=== PATIENT | female | born 1960 | race Caucasian/White ===

== ENCOUNTER 2017-06-16 11:43 | Emergency (ER) | payer OTHER ==
[~2017-06-16] VITALS: Ht 170.2 cm; Wt 56.7 kg
--- NOTE | ~2017-06-16 | EKG ---
[address] [place] [place] [address] ELECTROCARDIOGRAM REPORT Name: MIKHAIL ZARAGOZA Room #: DEP Piedad#: [id number] Admission: 06/16/17 Attend Phys: Discharge: 06/16/17 Date of : 58 Report #: [id number] THIS REPORT FOR: //name// [facility] ED Test Date: 2017-06-16 Test Time: 12:55:50 Pat Name: MIKHAIL ZARAGOZA Department: Room: Gender: F Gun Examiner: [facility] : 1960 Requested By: Shavon Riley Order Number: [id number] MD: Elroy Paez Measurements Intervals [place] Rate: 97 P: 91 MI: 115 QRS: 93 QRSD: 94 T: 52 QT: 334 QTc: 425 Interpretive Statements Sinus rhythm Right ventricular conduction delay No previous ECG available for comparison Electronically Signed On 06-17-2017 15:28:35 SUSTAINABILITY CONSULTANT by Elroy Paez [email or web address] <ELECTRONICALLY SIGNED> By: Elroy Paez MD, [facility] 06/17/17 1528 [id number] Elroy Paez MD, FACC /EPI
[~2017-06-16 11:43] MED LIST: IBUPROFEN 600600 M1 PO
[2017-06-16] MEDS ORDERED: GUAIFEN-CODEINE10 ML PO (13:30)
== END 2017-06-16 13:49 | disposition home or self-care (01) ==
LOC: ER 11:43
DX: J06.9 Acute upper respiratory infection, unspecified (principal); Z90.710 Acquired absence of both cervix and uterus

== ENCOUNTER 2017-10-25 10:36 | Emergency (ER) | payer OTHER ==
[~2017-10-25] VITALS: Ht 170.2 cm; Wt 52.6 kg
[~2017-10-25 10:36] MED LIST changes: +GUAIFEN-CODEINE10 ML PO
[2017-10-25 10:39] VITALS: BP 155/98
[2017-10-25] MEDS ORDERED: ACYCLOVIR 400400 MG PO (11:10)
[2017-10-25] MEDS ORDERED: NORCO 5-325 TA1 EACH PO (11:11)
== END 2017-10-25 11:19 | disposition home or self-care (01) ==
LOC: ER 10:36
DX: B02.9 Zoster without complications (principal); R51 Headache; F17.210 Nicotine dependence, cigarettes, uncomplicated; Z90.710 Acquired absence of both cervix and uterus

== ENCOUNTER → 2017-11-15 | Outpatient (CLI) | payer OTHER ==
[~2017-11-15] MED LIST changes: +ACYCLOVIR 400400 MG PO; +NORCO 5-325 TA1 EACH PO
== END ==
LOC: RAD 01:39
DX: Z12.31 Encounter for screening mammogram for malignant neoplasm of breast (principal)

== ENCOUNTER → 2017-11-19 | Outpatient (CLI) | payer OTHER | LOC: ULTRA 12:51 | DX: R92.2 Inconclusive mammogram (principal); J44.9 Chronic obstructive pulmonary disease, unspecified ==